=== PATIENT | female | born 1995 | race Caucasian/White ===

== ENCOUNTER 2016-03-13 10:13 | Inpatient (IN) | payer BC ==
[~2016-03-13] VITALS: Ht 167.6 cm; Wt 70.8 kg
[2016-03-13] MEDS ORDERED: CITRIC ACID/SODIUM CITRATE 30 ML SOLUTION UDCUP PO PRN (10:45)
[2016-03-13] MEDS ORDERED: METOCLOPRAMIDE HCL 5 MG/ML 2 ML VIAL IVP PRN (10:45)
[2016-03-13 11:08] VITALS: BP 111/73
[2016-03-13] MEDS ORDERED: PREN1TAB80 PO (11:15)
[2016-03-13 11:27] LABS: BASOPHILS % (AUTO) 0.4 % (0.0-2.0); EOSINOPHILS % (AUTO) 2.3 % (1.0-6.0); HEMATOCRIT 33.6 % (36-46); HEMOGLOBIN 11.2 g/dL (12.0-16.0); LYMPHOCYTES % (AUTO) 28.5 % (22.0-44.0); MEAN CORPUSCULAR HEMOGLOBIN 31.5 pg (26.0-34.0); MEAN CORPUSCULAR HGB CONC 33.2 G/dL (31.0-37.0); MEAN CORPUSCULAR VOLUME 95 fL (80-100); MONOCYTES # (AUTO) 0.4 K/uL (0.1-1.0); MONOCYTES % (AUTO) 6.5 % (2.0-9.0); NEUTROPHILS # (AUTO) 4.3 K/uL (1.8-7.7); NEUTROPHILS % (AUTO) 62.3 % (40.0-70.0); PLATELET COUNT (AUTO) 212 K/uL (150-450); RED BLOOD CELL COUNT(AUTO) 3.54 MIL/uL (4.00-5.20); RED CELL DISTRIBUTION WIDTH 13.7 % (11.5-14.5); WHITE BLOOD COUNT (AUTO) 6.9 K/uL (4.5-11.0)
[2016-03-13] MEDS ORDERED: INFLUENZA VIRUS VACCINE QVS 2016-17 (3YR+)/PF 60 MCG/0.5 ML SYRINGE IM ONE (11:30)
[2016-03-13] MEDS ORDERED: DINOPROSTONE 10 MG VAGINAL SUPPOSITORY VG ONE (13:00)
[2016-03-13] MEDS: RINGERS SOLUTION,LACTATED 1,000 ML IV SCH (19:02)
[2016-03-13] MEDS: FentaNYL CITRATE-PF 100 MCG/2 ML VIAL IVP PRN ×3 (19:27→23:47)
[2016-03-14] MEDS: FentaNYL CITRATE-PF 100 MCG/2 ML VIAL IVP PRN ×6 (01:34→10:31)
[2016-03-14] MEDS: RINGERS SOLUTION,LACTATED 1,000 ML IV SCH ×3 (02:21→12:53)
[2016-03-14] MEDS: OXYGEN THERAPY IH SCH ×3 (02:21→20:18)
[2016-03-14] MEDS: RINGERS SOLUTION,LACTATED 1,000 ML IV PRN ×2 (04:21→10:39)
[2016-03-14] MEDS ORDERED: FentaNYL/BUPIV 0.125%/NS/PF 0 ML ED ONE (04:22)
[2016-03-14] MEDS ORDERED: OXYTOCIN 30 UNITS/LACT RINGERS 500 ML IV PRN (04:23)
[2016-03-14] MEDS ORDERED: FentaNYL CITRATE-PF 100 MCG/2 ML VIAL ONE (10:31)
[2016-03-14] MEDS ORDERED: ONDANSETRON HCL 4 MG/2 ML VIAL ONE (10:31)
[2016-03-14] MEDS ORDERED: LIDOCAINE HCL/PF 2% 5 ML VIAL ONE (10:31)
[2016-03-14] MEDS ORDERED: FentaNYL/BUPIV 0.125%/NS/PF 200 ML ED ONE (10:31)
[2016-03-14] MEDS ORDERED: METHYLERGONOVINE MALEATE 0.2 MG/ML VIAL IM STA (18:58)
[2016-03-14] MEDS ORDERED: MISOPROSTOL 100 MCG TABLET ONE ×2 (19:13→19:17)
[2016-03-14] MEDS ORDERED: BENZOCAINE 20%/MENTHOL 56 GM SPRAY CANISTER TP PRN (19:45)
[2016-03-14] MEDS ORDERED: LANOLIN 7 GM OINTMENT TP PRN (19:45)
[2016-03-14] MEDS ORDERED: MISOPROSTOL 100 MCG TABLET PR ONE (19:45)
[2016-03-14] MEDS ORDERED: ACETAMINOPHEN/CODEINE 300-30 MG TABLET PO PRN (19:45)
[2016-03-14] MEDS ORDERED: GLYCERIN/WITCH HAZEL LEAF 40 PADS JAR TP PRN (19:45)
[2016-03-14] MEDS ORDERED: CeFAZolin 2 GM/DEXTROSE 50 ML IV ONE (20:15)
[2016-03-14] MEDS ORDERED: ONDANSETRON HCL 4 MG/2 ML VIAL IVP PRN (20:15)
[2016-03-14] MEDS ORDERED: ACETAMINOPHEN 1000 MG/ISO-OSM 100 ML IV ONE (20:15)
[2016-03-14] MEDS ORDERED: MAGNESIUM HYDROXIDE SUSPENSION 30 ML UDCUP PO SCH (21:00)
[2016-03-14] MEDS ORDERED: SENNA/DOCUSATE SODIUM 187-50 MG TABLET PO SCH (21:00)
[2016-03-15] MEDS: ACETAMINOPHEN/CODEINE 300-30 MG TABLET PO PRN ×2 (04:02→08:06)
[2016-03-15] MEDS: IBUPROFEN 600 MG TABLET PO PRN ×2 (04:02→12:38)
[2016-03-15 06:39] LABS: BASOPHILS % (AUTO) 0.2 % (0.0-2.0); EOSINOPHILS % (AUTO) 0.1 % (1.0-6.0); HEMATOCRIT 28.4 % (36-46); HEMOGLOBIN 9.6 g/dL (12.0-16.0); LYMPHOCYTES # (AUTO) 1.8 K/uL (1.0-4.8); LYMPHOCYTES % (AUTO) 12.7 % (22.0-44.0); MEAN CORPUSCULAR HEMOGLOBIN 32.3 pg (26.0-34.0); MEAN CORPUSCULAR HGB CONC 33.7 G/dL (31.0-37.0); MEAN CORPUSCULAR VOLUME 96 fL (80-100); MONOCYTES # (AUTO) 0.6 K/uL (0.1-1.0); MONOCYTES % (AUTO) 4.3 % (2.0-9.0); NEUTROPHILS # (AUTO) 11.9 K/uL (1.8-7.7); NEUTROPHILS % (AUTO) 82.7 % (40.0-70.0); RED BLOOD CELL COUNT(AUTO) 2.96 MIL/uL (4.00-5.20); RED CELL DISTRIBUTION WIDTH 13.6 % (11.5-14.5); WHITE BLOOD COUNT (AUTO) 14.4 K/uL (4.5-11.0)
[2016-03-15] MEDS ORDERED: IBUP-1547 PO (12:18)
[2016-03-15] MEDS ORDERED: DSS100 PO (12:19)
== END 2016-03-15 17:45 | disposition home or self-care (01) | DRG 775 ==
LOC: 4S 10:13 → OBSVTOIN 10:13
PROVIDERS: ADMIT Obstetrics & Gynecology; ATTEND Obstetrics & Gynecology
PROC: 3E0S3BZ Introduction of Anesthetic Agent into Epidural Space, Percutaneous Approach (ICD-10-PCS; 2016-03-13)
PROC: 00HU33Z Insertion of Infusion Device into Spinal Canal, Percutaneous Approach (ICD-10-PCS; 2016-03-13)
PROC: 3E0234Z Introduction of Serum, Toxoid and Vaccine into Muscle, Percutaneous Approach (ICD-10-PCS; 2016-03-13)
PROC: 10E0XZZ Delivery of Products of Conception, External Approach (ICD-10-PCS; principal; 2016-03-14)
PROC: 0UQMXZZ Repair Vulva, External Approach (ICD-10-PCS; 2016-03-14)
DX: O62.2 Other uterine inertia (principal); O71.82 Other specified trauma to perineum and vulva; Z3A.39 39 weeks gestation of pregnancy; Z37.0 Single live birth; Z23 Encounter for immunization
CPT/HCPCS: 90471; J0131; J0690; J2405; J2590; J3010; J3490; J7120

== ENCOUNTER 2017-10-25 20:28 | Observation (INO) | payer SELFPAY ==
[~2017-10-25] VITALS: Ht 167.6 cm; Wt 64.4 kg
[~2017-10-25 20:28] MED LIST: DSS100 PO; IBUP-2071 PO; PREN1TAB80 PO
[2017-10-25 21:25] VITALS: BP 122/77
[2017-10-25 22:37] LABS: APPEARANCE,URINE CLEAR (CLEAR); BILIRUBIN,URINE NEGATIVE (NEGATIVE); GLUCOSE, URINE (UA) NEGATIVE (NEGATIVE); KETONES,URINE NEGATIVE (NEGATIVE); LEUKOCYTE ESTERASE ,URINE NEGATIVE (NEGATIVE); NITRATE,URINE NEGATIVE (NEGATIVE); OCCULT BLOOD,URINE NEGATIVE (NEGATIVE); PH,URINE 6.5 (5.0-8.0); PROTEIN,URINE NEGATIVE (NEGATIVE)
[2017-10-25 22:57] LABS: BACTERIA,URINE None Seen /HPF (None Seen); RBC,URINE None Seen /HPF (0-2); SQUAMOUS EPITHELIAL CELL,UR Few /LPF (None Seen)
== END 2017-10-25 23:35 | disposition home or self-care (01) ==
LOC: 4S 20:28
PROVIDERS: ADMIT Obstetrics & Gynecology; ATTEND Obstetrics & Gynecology
DX: O62.9 Abnormality of forces of labor, unspecified (principal); Z3A.39 39 weeks gestation of pregnancy
CPT/HCPCS: 59025; 80307 ×8; 81001; G0378